=== PATIENT | female | born 1950 | race Caucasian/White ===

== ENCOUNTER 2024-11-18 18:10 | Emergency (ER) | payer MEDICARE, SELFPAY ==
[2024-11-18 18:12] VITALS: BP 130/65
[2024-11-18 19:45] VITALS: BP 124/70
[2024-11-18 19:46] LABS: Hematocrit 33.1 % (37.0-47.0); Hemoglobin 10.4 g/dL (12.0-16.0); Mean Corp Hgb Conc. 31.4 g/dL (33.0-37.0); Mean Corpuscular Volume 81.3 fL (81.0-99.0); Nucleated Red Blood Cells % 0 %; Platelet Count 299 10^3/uL (130-400); Red Cell Dist. Width 16.9 % (11.5-14.5)
[2024-11-18 20:05] LABS: Blood Urea Nitrogen 26 mg/dl (7-17); Calcium 9.4 mg/dl (8.4-10.2); Carbon Dioxide 25 mmol/L (22-30); Chloride 106 mmol/L (98-107); Glucose 91 mg/dl (70-99); Potassium 4.9 mmol/L (3.5-5.1); Sodium 137 mmol/L (135-145); eGFR 43.42
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
[2024-11-19 01:15] VITALS: BP 119/63
[2024-11-19] MEDS: TOPROL XL 50 MG PO (01:17)
[2024-11-19] MEDS: SEROQUEL 400 MG PO (01:17)
[2024-11-19] MEDS: DESYREL 100 MG PO (01:18)
[2024-11-19 06:10] VITALS: BP 94/40
[2024-11-19 08:45] VITALS: BP 93/55
--- NOTE | 2024-11-19 09:55 | EDRN ---
This RN spoke to Dr. Sarkar about orders for her usual medications.
--- NOTE | 2024-11-19 09:56 | ED.GENMED ---
History of Present Illness
General
Chief Complaint: Crisis Evaluation
Time Seen by Provider: 11/18/24 18:40
Course
Orders/Labs/Results
Orders:
Orders
11/18/24 18:44
Crisis Consult Urgent
Reason for Consult: SI
11/18/24 19:26
Basic Metabolic Panel Urgent
Complete Blood Count/With Diff Urgent
11/18/24 19:32
Fentanyl, Urine Urgent
Urine Drug Abuse Screen Urgent
Date Specimen was Collected: 11/18/24
Time Specimen was Collected: 19:18
11/18/24 22:38
Metoprolol Xl [Toprol Xl] 50 mg PO NOW STA
Quetiapine Fumarate [Seroquel] 400 mg PO NOW STA
Trazodone [Desyrel] 100 mg PO NOW STA
11/18/24 23:45
ED Special Safety Observation ONCE
Observation level: One to Two
11/19/24 01:03
Metoprolol Xl [Toprol Xl] 50 mg .ROUTE .STK-MED ONE
Trazodone [Desyrel] 100 mg .ROUTE .STK-MED ONE
11/19/24 01:06
Quetiapine Fumarate [Seroquel] 400 mg .ROUTE .STK-MED ONE
Abnormal Lab Results
11/18/24 11/18/24
19:26 19:32
RBC 4.07 L 10^6/uL
(4.20-5.40)
Hgb 10.4 L g/dL
(12.0-16.0)
Hct 33.1 L %
(37.0-47.0)
MCH 25.6 L pg
(27.0-31.0)
MCHC 31.4 L g/dL
(33.0-37.0)
RDW 16.9 H %
(11.5-14.5)
MPV 10.5 H fL
(7.4-10.4)
Absolute Monos (auto) 1.1 H 10^3/uL
(0.1-0.6)
Monocytes % 11.3 H %
(1.7-9.3)
BUN 26 H mg/dl
(7-17)
Creatinine 1.3 H mg/dL
(0.6-1.0)
U Benzodiazepines Scrn Positive H
(Negative)
11/18/24 19:26
11/18/24 19:26
Vital Signs
Initial and Last Documented VS:
Initial Vital Signs
Temp Pulse Resp BP Pulse Ox
37.0 C 71 15 130/65 98
11/18/24 18:12 11/18/24 18:12 11/18/24 18:12 11/18/24 18:12 11/18/24 18:12
Last Documented Vital Signs
Temp Pulse Resp BP Pulse Ox
36.6 C 70 17 93/55 97
11/19/24 08:45 11/19/24 08:45 11/19/24 08:45 11/19/24 08:45 11/19/24 08:45
*Pulse Oximetry
SaO2: 97
Oxygen Mode of Delivery: Room air
ED Attending Note
-
Portions of this chart may have been created with voice recognition software.� Occasional wrong word or��sound alike� substitutions may have occurred due to the inherent limitations of voice recognition software.
Discharge Plan
Departure
Patient Disposition: Psych Facility
Date of Disposition: 11/18/24
Time of Disposition: 21:04
Discharge Problem:
Suicidal ideation
Prescriptions:
No Action
fluoxetine [Prozac] 40 mg Capsule
60 mg PO DAILY
pramipexole 1 mg Tablet
1 mg PO DAILY
metoprolol succinate 50 mg Tablet Extended Release 24 Hr
50 mg PO HS
valacyclovir [Valtrex] 1 gram Tablet
1,000 mg PO Q8H
lamotrigine [Lamictal] 25 mg Tablet
50 mg PO DAILY
trazodone 100 mg Tablet
100 mg PO HS
esomeprazole magnesium [Nexium] 40 mg Capsule,Delayed Release(Dr/Ec)
40 mg PO DAILY
quetiapine [Seroquel] 400 mg Tablet
400 mg PO HS
lubiprostone [Amitiza] 24 mcg Capsule
24 mcg PO BID
Referrals:
NONE,* [Family Provider, Internal Medicine]
Interventions
Interventions:
*Risk Screen - Suicide Last Done: 11/19/24 00:00
*General Assessment Last Done: 11/18/24 18:12
*Neglect/Abuse Screening Last Done: 11/18/24 18:12
*ED- Fall Risk Assessment Last Done: 11/18/24 22:15
*ED COVID-19 Vaccine History Last Done: 11/18/24 22:15
ED-Psychological Assessment Last Done: 11/19/24 00:00
Discharge Date and Time
Print Language: BARBADIAN
[2024-11-19 10:40] VITALS: BP 118/45
[2024-11-19] MEDS: PROZAC 60 MG PO (11:01)
[2024-11-19] MEDS: LAMICTAL 25 MG PO (11:01)
--- NOTE | 2024-11-19 11:31 | EDRN ---
[employer] worker Laina just informed this RN that pt will be leaving at [facility] 12:30 to [facility] via [facility].
[2024-11-19] MEDS: MIRAPEX, GENERIC 1 MG PO (11:36)
--- NOTE | 2024-11-19 12:26 | ED.CRISIS ---
ED Crisis Note
ED Crisis Note
Subjective:
No new issues
Objective:
I ordered her usual meds
Assessment/Plan:
Transport to [facility] at 12:30pm
== END 2024-11-19 12:55 ==
LOC: EMR 18:10
PROVIDERS: Physician Assistant; EMERGENCY PHYSICIAN Emergency Medicine
DX: R45.851 Suicidal ideations (principal); F31.9 Bipolar disorder, unspecified; F43.10 Post-traumatic stress disorder, unspecified; I10 Essential (primary) hypertension; T43.596A Underdosing of other antipsychotics and neuroleptics, initial encounter; Z91.148 Patient's other noncompliance with medication regimen for other reason
CPT/HCPCS: 99285; 80048; 80306; 80307; 85025